=== PATIENT | female | born 1955 | race Caucasian/White ===

== ENCOUNTER 2016-07-05 14:01 | Emergency (ER) | payer OTHER ==
--- NOTE | ~2016-07-05 | ER ---
Unit #: [id number] #: [id number] Patient: JOSSE RAMESH [id number] [address] [place], [place] [address] [id number] MR#: [id number] NAME: JOSSE RAMESH ROOM: Sex: F Age: 61 : 1955 Service Date: 07/05/2016 Attending Physician: Jim Singh M.D. Primary Care Physician: Juanita Reyes M.D. EMERGENCY DEPT PHYSICIAN NOTE Please see the written T-sheet for the full details of the encounter. Ms. Ramesh is a 61-year-old woman who was brought to the emergency department by EMS after being found on the ground in public, initially being somewhat confused for EMS. Per EMS report, they were called for the patient acting bizarrely and being noted by bystanders to be on the ground. Upon their arrival, the patient was not fully oriented and did not know the correct year and was unable to identify the current president. Because she seemed altered, they transported her to the hospital despite her wishes. On arrival here, the patient states that she does not want treatment in the emergency department. She relates that she had gone to the store and, while trying to walk back to her house, she became dizzy and sat down for a moment until the dizziness passed. The patient admits that initially she was not able to answer EMS questions appropriately. However, she is now completely alert and oriented to herself and her environment. She was able to correctly identify the president as well as the month, day and year. She was also able to converse normally and was able to discuss current events without difficulty. As such, with the patient not desiring any emergency treatment, she will be allowed to sign out against medical advice. She was offered treatment here in the emergency department by multiple providers including myself to which she declined all treatment. She is informed that by leaving against medical advice she risks an undiagnosed condition and one that may be potentially life threatening. She is able to repeat these consequences and still desires to leave against medical advice. She is encouraged to follow up with her primary doctor as soon as possible should any of her current symptoms persist and she desires further workup. Dictated by... Jim Singh M.D. BRENDAN/tristian TD: 07/06/2016 16:19 JOB #: [id number] Unit #: [id number] #: [id number] Patient: JOSSE RAMESH EMERGENCY DEPT PHYSICIAN NOTE Page 1 of 1 X Jim Singh MD X EMERGENCY DEPARTMENT REPORT
[~2016-07-05 14:01] MED LIST: FLEXERIL; ORUDIS75 M1 PO; ULTRAM PO
== END 2016-07-05 14:40 | disposition left against medical advice (07) ==
LOC: CED 14:01
DX: Z53.21 Procedure and treatment not carried out due to patient leaving prior to being seen by health care provider (principal)